=== PATIENT | female | born 1990 | race Caucasian/White ===

== ENCOUNTER 2020-08-22 13:23 | Inpatient (IN) | payer SELFPAY, OTHER ==
[2020-08-22] VITALS (16 sets, daily range): BP systolic 102–137; BP diastolic 58–90; PULSE 69–106; RESP 14–18; TEMP 36.3–36.8; O2SAT 96–100; BMI 39.4
[2020-08-22] MEDS: Lactated Ringers 1,000 ML 999 ML IV (13:16)
[2020-08-22] MEDS: Acetaminophen 500 MG Tablet 1000 MG PO ×2 (13:17→19:18)
[2020-08-22 13:41] LABS: Absolute Lymphocyte Count 1.68 X10^3/uL (0.83-4.51); Absolute Neutrophil Count 10.8 X10^3/uL (2.0-7.7); Basophil# 0.02 X10^3/uL; Basophil% 0.2 % (0-1); Eosinophil# 0.06 X10^3/uL; Eosinophils% 0.5 % (0-5); Hematocrit 39.8 % (37-47); Hemoglobin 13.3 g/dL (12.0-15.0); Lymphocyte # 1.68 X10^3/ul (4.0); Lymphocyte % 12.7 % (19-41); Mean Corp Hgb Conc 33.4 g/dL (32-36); Mean Corpuscular Hgb 29.4 pg (27.0-32.0); Mean Corpuscular Volume 87.9 fL (81-99); Mean Platelet Vol. 10.3 fl (6.2-12.0); Monocyte# 0.58 X10^3/uL; Monocyte% 4.4 % (0-10); NRBC Flagged by Analyzer 0 % (0-5); Neutrophil # 10.78 X10^3/uL (2.7-7.7); Neutrophil % 81.5 % (47-70); Platelet Count 217 K/mm3 (150-450); RBC Distribution Width CV 13.5 % (11.6-14.6); RBC Distribution Width SD 43.6 fl (35.1-43.9); Red Blood Count 4.53 M/mm3 (4.2-5.4); White Blood Count 13.2 K/mm3 (4.4-11.0)
[2020-08-22] MEDS: Sodium Citrate/Citric Acid 30 ML UDC PO (13:53)
[2020-08-22 13:56] LABS: Amphetamine Urine VISTA NEGATIVE (<1000 ng/mL); Barbiturate Urine VISTA NEGATIVE (< 200 ng/mL); Benzodiazepine Urine VISTA NEGATIVE (< 200 ng/mL); Cocaine Urine VISTA NEGATIVE (< 300 ng/mL); Ecstacy Urine VISTA NEGATIVE (< 500 ng/mL); Methadone Urine VISTA NEGATIVE (< 300 ng/mL); PCP Urine VISTA NEGATIVE (< 25 ng/mL); THC Urine VISTA NEGATIVE (< 50 ng/mL); Vista UDS pH Range 6
[2020-08-22] MEDS: Lactated Ringers 1,000 ML 150 ML IV (14:26)
--- NOTE | 2020-08-22 14:27 | HP.PCM_ITS ---
- Problem List (1) Limited care in third trimester Status: Acute (2) Previous delivery affecting Status: Acute (3) Abdominal pain affecting Status: Acute History Date of Admission: 08/22/20 Final KWABENA: 08/21/20 - Based on fundal height and time of first heart tones as captured by player development executive. Do days based on ultrasound range from 08/05/20 to the first week of August. Gestational age: 40 Weeks and 1 Days History of this : This is a 29 year-old, G 10 P8 at ?40w1d weeks gestational age presents with abdominal pain and history of . Patient has been receiving care by player development executive in the community since early January. She was unable to get heart tones in December but upon the January visit she did and therefore the ply splicer states her due date is approximately 08/21/2020. Patient has had a complicated by short interpregnancy intervals with 8 deliveries and 1 miscarriage within the last 9 years. Her first 3 deliveries were vaginal and then she had a for preeclampsia and then had 4 VBACs after it. She has had increasing abdominal discomfort the last week and this morning states that she has pain all over her abdomen that is significant and she called Viola Lr who had done an ultrasound and said that she was due on August 05 and that physician recommended she come in for evaluation and delivery here. After speaking with her ply splicer alyse the patient was evaluated last week by a physician in [place] and was thought to be 38 weeks last week on ultrasound and was recommended to have a repeat this week.. Allergies No Known Allergies Allergy (Verified 08/22/20 12:19) Home Medications: Home Medications Acidophilus 2 tab PO DAILY 08/22/20 Benadryl 1 tab PO QHS PRN 08/22/20 Calcium 500-Vit D3 600 Caplet 1 tab PO DAILY 08/22/20 Prenatabs FA 1 tab PO DAILY 08/22/20 Tylenol 1,000 mg PO 4X/DAY PRN 08/22/20 Smoking Status: Never smoker Substance Use Type: Sleep Aides NST - FHR Rate Baby A Baseline: 140 Variability:: Moderate, Marked Decelerations:: None NST Reactive:: Yes FHR Category:: Category I Uterine Activity:: Irritability History Past Pregnancies: Past Pregnancies 7 previous vaginal deliveries term 1 previous for preeclampsia, some home births and some of the hospital. Labs: Mom's Labs & Results 08/22/20 08/22/20 08/22/20 13:14 13:14 13:14 WBC 13.2 H RBC 4.53 Hgb 13.3 Hct 39.8 MCV 87.9 MCH 29.4 MCHC 33.4 RDW Std Deviation 43.6 RDW Coeff of Nanette 13.5 Plt Count 217 MPV 10.3 Immature Gran % (Auto) 0.700 Neut % (Auto) 81.5 H Lymph % (Auto) 12.7 L [place] % (Auto) 4.4 Eos % (Auto) 0.5 Baso % (Auto) 0.2 Absolute Neuts (auto) 10.8 H Absolute Lymphs (auto) 1.68 Nucleated RBC % 0 Urine Opiates Screen Urine Methadone Screen Ur Barbiturates Screen Ur Phencyclidine Scrn Ur Amphetamines Screen U Methamphetamin-MDMA U Benzodiazepines Scrn Urine Cocaine Screen U Cannabinoids Screen Ur Drug Screen Comment RPR Hep Bs Antigen Hepatitis C Antibody HIV 1&2 Antibody Rubella IgG Antibody Pending Blood Type Pending Antibody Screen Pending 08/22/20 08/22/20 08/22/20 13:14 13:14 13:15 WBC RBC Hgb Hct MCV MCH MCHC RDW Std Deviation RDW Coeff of Nanette Plt Count MPV Immature Gran % (Auto) Neut % (Auto) Lymph % (Auto) [place] % (Auto) Eos % (Auto) Baso % (Auto) Absolute Neuts (auto) Absolute Lymphs (auto) Nucleated RBC % Urine Opiates Screen NEGATIVE Urine Methadone Screen NEGATIVE Ur Barbiturates Screen NEGATIVE Ur Phencyclidine Scrn NEGATIVE Ur Amphetamines Screen NEGATIVE U Methamphetamin-MDMA NEGATIVE U Benzodiazepines Scrn NEGATIVE Urine Cocaine Screen NEGATIVE U Cannabinoids Screen NEGATIVE Ur Drug Screen Comment RPR Pending Hep Bs Antigen Pending Hepatitis C Antibody Pending HIV 1&2 Antibody Pending Rubella IgG Antibody Blood Type Antibody Screen Course Did the patient receive Yes care? Current Obstetrical History Gestational Diabetes No Incompetent Cervix No Infertility No IUGR No Macrosomia No Hypertension/Pre-eclampsia No Placenta Previa/Abruption No PTL/PROM No Uterine anomaly No Oligohydramnios No Polyhydramnios No Multiple gestation No Past Medical History Asthma No Diabetes No Hypertension No Heart disease No Mitral valve prolapse No Neurologic/Seizure disorder/ No Migraines Kidney disease No Liver disease No Varicosities Yes: bilateral legs Clotting disorders/Hx of DVT No Thyroid Dysfunction No Other medical diseases No Psychiatric disorders No Major trauma No Abnormal PAP smear No Sleep apnea No Mammogram in the last 2 years No Social History Marital Status: Alleged father [place] Hx Smoking No Smoking Status Never smoker Substance Use Type Sleep Aides Expected Infant Delivery Method: Spontaneous Vaginal Review of Systems Constitutional: Denies: Fever, Malaise Eyes: Denies: Blurred vision, Vision Change HEENT: Denies: Head Aches, Visual Changes Cardiovascular: Denies: Chest Pain, Palpitations Respiratory: Denies: Cough, Shortness of Breath, Wheezing Gastrointestinal: Reports: Abdominal Pain, Nausea. Denies: Diarrhea, Vomiting Genitourinary: Denies: Dysuria, Hematuria Musculoskeletal: Denies: Joint Pain, Muscle pain Skin: Denies: Lesions, Rash Neurological: Denies: Blurred vision, Focal weakness, Headaches Psychiatric: Denies: Anxiety, Depression Endocrine: Denies: Heat/ Cold Intolerance Hematologic/ Lymphatic: Denies: Easy Bruising, Easy Bleeding Physical Exam Vitals: Vital Signs Temp Pulse BP Pulse Ox 98.2 F 106 H 125/78 H 96 08/22/20 12:04 08/22/20 12:04 08/22/20 12:04 08/22/20 12:04 General: Alert, Cooperative, No apparent distress HEENT: Atraumatic, Normocephalic. Negative for: Thyromegaly, Lymphadenopathy Cardiovascular: Regular rate Lungs: Normal air movement Abdomen: Soft, Gravid, Appropriate for Gestational Age - Approximately 40 cm, - - Abdomen tender all over with no rebound or guarding severe abdominal wall laxity and rectus muscle diastases Neurological: Deep Tendon Reflexes 2+/4 and Symmetrical, Neuro grossly intact. Negative for: Clonus [employer]: Normal external genitalia. Negative for: Vulvar lesions Estimated gestational size: Appropriate for gestational size Presentation: Cephalic Cervix Dilation (cm): 2 Assessment/Plan All Active Problems Limited care in third trimester (Acute) Previous delivery affecting (Acute) Abdominal pain affecting (Acute) This is a 29 year-old, G 10 P8 at 40 weeks gestational age with abdominal pain and previous Unclear about exact dating but patient appears consistent with 40 weeks. Due to significant new onset of abdominal pain history of previous , recommend proceeding with repeat low transverse per patient request for versus vaginal delivery. Plan sterilization with bilateral salpingectomy per patient request also. heart tones reassuring and patient currently stable will wait for complete n.p.o. status
[2020-08-22 14:44] LABS: Bacteria 0 SEEN /hpf (None Seen); Mucous, Urine 0 SEEN /hpf (<or=2+); Red Blood Cells-Urine 0 SEEN /hpf (0-5); Squamous Epithelial Cells - UA 0 SEEN /hpf (5-10); White Blood Cells 0 SEEN /hpf (0-5)
[2020-08-22 14:46] LABS: Color, Urine Straw (Yellow); Glucose, Dipstick Normal (Normal); Ketone-Dipstick Negative (Negative); Leukocyte Esterase-Dipstick 25 /ul (Negative); Nitrite-Dipstick Negative (Negative); Occult Blood-Urine Negative /ul (Negative); Protein-Dipstick Negative (Negative); Specific Gravity, Urine 1.005 (1.002-1.030); Urine Bilirubin Dipstick Negative (Negative); Urine Clarity Clear (Clear); Urine Urobilinogen Normal (Normal)
[2020-08-22] MEDS: Cefazolin 2 GM in 0.9% Normal Saline 100 ML IV (15:00)
--- NOTE | 2020-08-22 15:16 | OP.PCM_ITS ---
Problem List (1) Limited care in third trimester Status: Acute (2) Previous delivery affecting Status: Acute (3) Abdominal pain affecting Status: Acute Delivery Classification: NICO Final KWABENA: 08/21/20 Gestational age: 40 Weeks and 1 Days lodge officer: Bry Gaytan Type of Anesthesia:: Spinal Special Medications: none Implants Used: none Date of Procedure: 08/22/20 Pre-Operative Diagnosis: previous , abdominal pain, desired sterilization Post-Operative Diagnosis: same Indications for : Repeat Elective , Desires elective sterilization Description of Procedure: Spinal anesthesia was placed without difficulty. Vergara catheter was placed. The patient was placed in the dorsal supine position with leftward tilt. Patient was prepped and draped in the normal sterile fashion. Pfannenstiel skin incision was made with the scalpel and carried through to the underlying layer of fascia with the scalpel. Fascia was nicked in the midline and the incision extended laterally. The rectus bellies were dissected off superiorly and inferiorly with out complication both sharply and bluntly. The peritoneum was entered digitally. The incision was stretched and a low transverse uterine incision was made with the scalpel. The 's head was delivered atraumatically followed by the anterior and posterior shoulders without complication the rest of the infant delivered. The cord was clamped and cut and the infant was handed off to awaiting nurse. The placenta was delivered spontaneously immediately following and was noted to be intact and have a three- vessel cord. The uterus was exteriorized cleared of all clots and debris, and the incision was closed in a single layer closure using #1 Monocryl. The ovaries and fallopian tubes were noted to be within normal limits. Patient had desired sterilization and was counseled preoperatively regarding irreversibility and permanency. Therefore bilateral fallopian tubes were elevated and transected across using a LigaSure device starting proximally to distally without complication the entire fallopian tubes were removed. The uterus was returned to the maternal abdomen and gutters were cleared of all clots and debris. The peritoneum was closed with 3-0 Monocryl in a running fashion. Gloves were changed prior to fascial closure. Fascia was closed with 0 PDS in a running fashion. Subcutaneous tissue was copiously irrigated and the skin was closed with 3-0 Monocryl in a subcuticular fashion. Mepilex dressing was applied without complication. Patient was taken to recovery in stable condition. Less than 30 minutes after delivery she developed a hemorrhage with approximately 800 cc EBL in addition to the previous 800 intraoperatively. Patient was given Hemabate, Methergine, Pitocin, and bimanual massage and Cytotec and tranexamic acid and the apnea resolved after the clot was removed from the lower uterine segment. Patient was initially hypotensive and then responded to fluids and interventions and stabilized. Amniotic Membrane Rupture Type: Artificial Amniotic Fluid Description: Clear Placenta Disposition: [facility] Fluids Replaced: crystalloid Cord Entanglement: None Cord Vessel Description: 3 Vessels Esitmated Blood Loss (ml): 800 Infant Gender: Male Delayed cord clamping: Yes Antibiotic Given: Ancef 2 grams IV x1 Pt instructed on risks of surgery: Bleeding, Anesthesia Risks, Infection, Permanency, Injury to surrounding structure(s) including bowel and bladder Complications: None - Admit VTE Documentation VTE Present on Admission: No VTE Mechan Device Prophylaxis: SCD's Multi Select Codes - Urinary/Genital Urinary/Genital CPT Codes: 27040 delivery+PP Care([facility])
[2020-08-22] MEDS: Methylergonovine 0.2 MG/ML Ampul IM (15:59)
[2020-08-22] MEDS: Oxytocin 30 units/NS 500 ml 30 UNITS/500 ML IV.SOLN 167 UNITS IV (16:10)
[2020-08-22 16:31] LABS: Chlamydia Trachomatis by PCR Negative (Negative); Neisserai gonorrhoeae by PCR Negative (Negative); Probe Check PASS; Sample Adequacy Control PASS; Specimen Processing Control PASS
--- NOTE | 2020-08-22 17:28 | NURSING ---
Hemorrhage noted upon first fundal exam in room out of OR at 1623. See Hemorrhage Checklist in paper chart for documentation. Receovery resumed at 1713 after patient stabilized.
[2020-08-22 17:40] LABS: Absolute Neutrophil Count 9.5 X10^3/uL (2.0-7.7); Basophil# 0.03 X10^3/uL; Basophil% 0.3 % (0-1); Eosinophil# 0.04 X10^3/uL; Eosinophils% 0.3 % (0-5); Hematocrit 35.6 % (37-47); Hemoglobin 11.6 g/dL (12.0-15.0); Lymphocyte % 13.5 % (19-41); Mean Corp Hgb Conc 32.6 g/dL (32-36); Mean Corpuscular Hgb 29.1 pg (27.0-32.0); Mean Corpuscular Volume 89.2 fL (81-99); Mean Platelet Vol. 10.7 fl (6.2-12.0); Monocyte# 0.58 X10^3/uL; Monocyte% 4.9 % (0-10); NRBC Flagged by Analyzer 0 % (0-5); Neutrophil % 80.2 % (47-70); Platelet Count 192 K/mm3 (150-450); RBC Distribution Width CV 13.5 % (11.6-14.6); RBC Distribution Width SD 44.2 fl (35.1-43.9); Red Blood Count 3.99 M/mm3 (4.2-5.4); White Blood Count 11.8 K/mm3 (4.4-11.0)
[2020-08-22] MEDS: HYDROmorphone 0.5 MG/0.5 ML SYRINGE IV ×2 (17:51→18:45)
[2020-08-22 17:56] LABS: Rubella IgG 78.1 IU/mL
--- NOTE | 2020-08-22 18:31 | NURSING ---
Report given to Polly Richardson RN. She will assume care at this time.
--- NOTE | 2020-08-22 18:45 | FALS_PTH ---
PATIENT: SERA MCCALL LOC: [facility] U#:[id number] AGE/SX: 29/F ROOM: WP006 RE08/22/[address]: Dr. Any Sesay MD : [id number] BED: 1 DIS: 08/24/2020 SPEC #: [id number] RECD: 08/22/20 19:20 STATUS: NIKKI REJeanne #: [id number] EFRAIN: 08/22/20 18:[address]: Any Sesay DEPT: SURGICAL PATHOLOGY RECD BY: Angelika Grijalva ENTERED: 08/23/20 09:39 SP TYPE: FALL TUBES OTHR DR: Dr. Viola Lr MD Tissues: Fallopian tube Procedures: Surgery Specimen Level II Surgery Specimen Level IV HEADER OPERATION: Tubal ligation PRE-OP DIAGNOSIS: Sterilization TISSUE SUBMITTED: Fallopian tubes, left tube has suture MICROSCOPIC DIAGNOSIS Bilateral fallopian tubes, salpingectomy: Right fallopian tube - no pathologic diagnosis. 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 ANISH:donato 08/24/20 COMMENT Case has been reviewed in consultation with Dr. Márquez who concurs with the above diagnosis. IDC:AM MICROSCOPIC DESCRIPTION Slides are reviewed. GROSS DESCRIPTION Received in fixative is one container labeled with the patient's name and designated bilateral fallopian tubes, left tube suture. The specimen consists of bilateral fallopian tubes including fimbrial ends. The right fallopian tube measures 7 cm in length and up to 1 cm in diameter. The left fallopian tube measures 5.5 cm in length and 0.5 cm in diameter. The left fallopian tube shows a cyst filled with hemorrhagic mucoid fluid close to the fimbrial end measuring 2 cm in greatest dimension. The cyst wall is smooth. [employer] sections are submitted in three cassettes as follows: 1 - right fallopian tube, 2 - left paratubal cyst, entirely submitted, 3 - left fallopian tube. / ANISH:donato 08/23/20 TC:1 CPT: 22323, 17255
[2020-08-22] MEDS: 0.9% Saline Lock 10 ML Syringe IV ×2 (18:46→19:34)
[2020-08-22] MEDS: Lactated Ringers 1,000 ML 100 ML IV (18:46)
[2020-08-22 19:22] LABS: Pathology Specimen OB SEE PATHOLOGY REPORT
[2020-08-22 22:17] LABS: HIV - WCH Non-Reactive (Nonreactive); Hepatitis B Surface Antigen Non-Reactive (Nonreactive); Hepatitis C Antibody Non-Reactive (Nonreactive)
[2020-08-22] MEDS: Ketorolac 30 MG/ML Syringe IV (22:42)
[2020-08-23] VITALS (14 sets, daily range): BP systolic 101–127; BP diastolic 54–69; PULSE 64–86; RESP 16–20; TEMP 36.3–36.6; O2SAT 97–100
[2020-08-23] MEDS: Acetaminophen 500 MG Tablet 1000 MG PO ×4 (01:17→19:46)
[2020-08-23] MEDS: Ketorolac 30 MG/ML Syringe IV ×3 (03:54→15:49)
[2020-08-23] MEDS: 0.9% Saline Lock 10 ML Syringe IV ×3 (03:54→21:54)
[2020-08-23 04:22] LABS: Hematocrit 30.1 % (37-47); Hemoglobin 9.9 g/dL (12.0-15.0); Mean Corp Hgb Conc 32.9 g/dL (32-36); Mean Corpuscular Hgb 29.5 pg (27.0-32.0); Mean Corpuscular Volume 89.6 fL (81-99); Mean Platelet Vol. 10.2 fl (6.2-12.0); Platelet Count 160 K/mm3 (150-450); RBC Distribution Width CV 13.6 % (11.6-14.6); RBC Distribution Width SD 44.8 fl (35.1-43.9); Red Blood Count 3.36 M/mm3 (4.2-5.4); White Blood Count 14.4 K/mm3 (4.4-11.0)
[2020-08-23] MEDS: Enoxaparin 40 MG/0.4 ML Syringe SC (05:47)
--- NOTE | 2020-08-23 08:00 | PN.OBGYN_ITS ---
Patient Problems: Active and Suspected Problems Limited care in third trimester (Acute) Previous delivery affecting (Acute) Abdominal pain affecting (Acute) Subjective: Patient doing well without complaints. Tolerating PO. Up to bedside and voiding without difficulty. well. Denies chest pain, shortness of breath, calf pain/swelling, fevers, chills, lightheadedness. - Physical Exam Vitals/I&O's: Vital Signs Temp Pulse Resp BP Pulse Ox 97.7 F L 76 18 109/64 99 08/23/20 03:40 08/23/20 07:02 08/23/20 07:02 08/23/20 03:40 08/23/20 07:02 Oxygen Delivery Method Room Air Weight: 195 lb Body Mass Index (BMI) 39.4 Intake and Output for Last 24 Hours 08/21/20 08/22/20 08/23/20 23:59 23:59 23:59 Intake Total 2305.00 / 2605.00 / 2000. Output Total 300 / 600 1750 / 1750 Balance / 251.67 / 251.67 General: Alert, Oriented x3, Cooperative Abdomen: Soft, Non-Distended, - - FF below U. Approprately tender Laboratory Results 08/22/20 13:14: WBC 13.2 H, RBC 4.53, Hgb 13.3, Hct 39.8, MCV 87.9, MCH 29.4, MCHC 33.4, RDW Std Deviation 43.6, RDW Coeff of Nanette 13.5, Plt Count 217, MPV 10.3, Immature Gran % (Auto) 0.700, Neut % (Auto) 81.5 H, Lymph % (Auto) 12.7 L, [place] % (Auto) 4.4, Eos % (Auto) 0.5, Baso % (Auto) 0.2, Absolute Neuts (auto) 10.8 H, Absolute Lymphs (auto) 1.68, Nucleated RBC % 0 08/22/20 13:14: Blood Type A NEGATIVE, Antibody Screen NEGATIVE 08/22/20 13:14: Rubella IgG Antibody 78.1 08/22/20 13:14: RPR Pending 08/22/20 13:14: Hep Bs Antigen Non-Reactive, Hepatitis C Antibody Non-Reactive, HIV 1&2 Antibody Non-Reactive 08/22/20 13:14: Crossmatch See Detail 08/22/20 13:15: Urine Opiates Screen NEGATIVE, Urine Methadone Screen NEGATIVE, Ur Barbiturates Screen NEGATIVE, Ur Phencyclidine Scrn NEGATIVE, Ur Amphetamines Screen NEGATIVE, U Methamphetamin-MDMA NEGATIVE, U Benzodiazepines Scrn NEGATIVE, Urine Cocaine Screen NEGATIVE, U Cannabinoids Screen NEGATIVE, Ur Drug Screen Comment 08/22/20 14:30: Chlam trachomat DNA PCR Negative, N.gonorrhoeae DNA (PCR) Negative 08/22/20 14:30: Urine Color Straw, Urine Clarity Clear, Urine pH 7.0, Ur Specific [place] 1.005, Urine Protein Negative, Urine Glucose (UA) Normal, Urine Ketones Negative, Urine Occult Blood Negative, Urine Nitrite Negative, Urine Bilirubin Negative, Urine Urobilinogen Normal, Ur Leukocyte Esterase 25 H, Urine RBC 0 SEEN, Urine WBC 0 SEEN, Ur Squamous Epith Cells 0 SEEN, Urine Bacteria 0 SEEN, Urine Mucus 0 SEEN 08/22/20 16:55: WBC 11.8 H, RBC 3.99 L, Hgb 11.6 L, Hct 35.6 L, MCV 89.2, MCH 29.1, MCHC 32.6, RDW Std Deviation 44.2 H, RDW Coeff of Nanette 13.5, Plt Count 192, MPV 10.7, Immature Gran % (Auto) 0.800, Neut % (Auto) 80.2 H, Lymph % (Auto) 13.5 L, Charlton % (Auto) 4.9, Eos % (Auto) 0.3, Baso % (Auto) 0.3, Absolute Neuts (auto) 9.5 H, Absolute Lymphs (auto) 1.60, Nucleated RBC % 0 08/23/20 04:05: WBC 14.4 H, RBC 3.36 L, Hgb 9.9 L, Hct 30.1 L, MCV 89.6, MCH 29.5, MCHC 32.9, RDW Std Deviation 44.8 H, RDW Coeff of Nanette 13.6, Plt Count 160, MPV 10.2 Current Medications Acetaminophen (Acetaminophen 500 Mg Tablet) 1,000 mg PO Q6 DENISHA Last Admin: 08/23/20 06:59 Dose: 1,000 mg Documented by: Bisacodyl (Bisacodyl 10 Mg Suppository) 10 mg RECTAL UD PRN PRN Reason: If no BM Diphenhydramine HCl (Diphenhydramine 25 Mg Capsule) 25 mg PO Q6H PRN PRN PRN Reason: ITCHING Stop: 08/23/20 14:46 Enoxaparin Sodium (Enoxaparin 40 Mg/0.4 Ml Syringe) 40 mg SC DAILY@0500 [facility] Last Admin: 08/23/20 05:47 Dose: 40 mg Documented by: Hydrocortisone (Hydrocortisone 2.5% Crm) 1 applic TOPICAL TID PRN PRN; Protocol PRN Reason: Discomfort Ketorolac Tromethamine (Ketorolac 30 Mg/Ml Syringe) 30 mg IV Q6H [facility] Stop: 08/23/20 16:01 Last Admin: 08/23/20 03:54 Dose: 30 mg Documented by: Methylergonovine Maleate (Methylergonovine 0.2 Mg/Ml Ampul) 0.2 mg IM X1 PRN PRN Reason: Uterine Atony Last Admin: 08/22/20 15:59 Dose: 0.2 mg Documented by: Naloxone HCl (Naloxone 0.4 Mg/Ml Syringe) 0.02 mg IV Q1M PRN PRN Reason: RR <10 and pt unresponsive Naproxen (Naproxen 250 Mg Tablet) 500 mg PO Q8H [facility] Ondansetron HCl (Ondansetron 4 Mg/2 Ml Vial) 4 mg IV Q4H PRN PRN PRN Reason: Nausea Oxycodone HCl (Oxycodone 5 Mg Tablet) 5 - 10 mg PO Q4H PRN PRN PRN Reason: Pain Score 4-10 Prochlorperazine Edisylate (Prochlorperazine 10 Mg/2 Ml Vial) 10 mg IV Q6H PRN PRN PRN Reason: NAUSEA Senna/Docusate Sodium (Senna/Docusate Sodium 1 Tablet) 0 tablet PO DAILY [facility] Simethicone (Simethicone 80 Mg Tablet) 80 mg PO PCHS PRN PRN Reason: Indigestion/stomach pain Sodium Chloride (0.9% Saline Lock 10 Ml Syringe) 5 - 15 ml IV UD PRN PRN Reason: SALINE FLUSH Last Admin: 08/23/20 03:54 Dose: 10 ml Documented by: Medical Necessity - Tobacco Use Smoking Status: Never smoker Assessment/Plan All Active Problems Limited care in third trimester (Acute) Previous delivery affecting (Acute) Abdominal pain affecting (Acute) s/p LTCS PPD # 1, bilateral salpingectomy 1. routine post care 2. breast feeding- support given 3. rh negative 4. rubella immune
[2020-08-23] MEDS: Senna/Docusate Sodium 1 Tablet PO ×2 (12:09→14:18)
[2020-08-23] MEDS: oxyCODONE 5 MG Tablet PO ×2 (19:45→20:35)
[2020-08-23] MEDS: Ondansetron 4 MG/2 ML Vial IV (21:55)
[2020-08-23] MEDS: Naproxen 250 MG Tablet 500 MG PO (22:06)
--- NOTE | 2020-08-23 23:51 | NURSING ---
Called Dr. Sesay and notified her pt being painful despite painmeds given. all pain meds and times given by RN told to MD. also notified pt has voided, not moving much out of bed, pt explains pain as pressure pain on the right side. Rn has educated pt to move and pt denies. RN can palpate gas bubbles in abdomen and feels distended. She has received gas x twice, zofran and senna. VS wnl, and bleeding has been appropriate. Received order for dilaudid 1 mg x1 iv.
[2020-08-24] MEDS: 0.9% Saline Lock 10 ML Syringe IV (00:06)
[2020-08-24] MEDS: HYDROmorphone 1 MG/ML Syringe IV (00:06)
[2020-08-24 01:35] VITALS: BP 128/66; PULSE 81; RESP 18; TEMP 36.2; O2SAT 95
[2020-08-24] MEDS: Acetaminophen 500 MG Tablet 1000 MG PO ×2 (01:39→07:54)
--- NOTE | 2020-08-24 03:40 | NURSING ---
pt painfful and will not allow RN to palpate fundus. bleeding WNL.
--- NOTE | 2020-08-24 03:43 | NURSING ---
Pt resting with eyes closed.
[2020-08-24] MEDS: oxyCODONE 5 MG Tablet PO ×2 (04:04→12:11)
[2020-08-24] MEDS: Enoxaparin 40 MG/0.4 ML Syringe SC (05:59)
[2020-08-24] MEDS: Naproxen 250 MG Tablet 500 MG PO (05:59)
--- NOTE | 2020-08-24 07:59 | PN.OBGYN_ITS ---
Patient Problems: Active and Suspected Problems Limited care in third trimester (Acute) Previous delivery affecting (Acute) Abdominal pain affecting (Acute) Subjective: Patient with abdominal distension but now passing gas. Tolerating PO. Ambulating and voiding without difficulty. well. Denies chest pain, shortness of breath, calf pain/swelling, fevers, chills, lightheadedness. - Physical Exam Vitals/I&O's: Vital Signs Temp Pulse Resp BP Pulse Ox 97.2 F L 81 18 128/66 H 95 08/24/20 01:35 08/24/20 01:35 08/24/20 01:35 08/24/20 01:35 08/24/20 01:35 Oxygen Delivery Method Room Air Weight: 195 lb Body Mass Index (BMI) 39.4 Intake and Output for Last 24 Hours 08/22/20 08/23/20 08/24/20 23:59 23:59 23:59 Intake Total 2305.00 / 2605.00 67 / Output Total 300 / 600 3250 / 3250 Balance / -1248.33 / -1248.33 General: Alert, Oriented x3, - - has answer most questions. Abdomen: Passing Flatus, Distended, Guarding, - - FF below U. Dressing with old drainage only. Current Medications Acetaminophen (Acetaminophen 500 Mg Tablet) 1,000 mg PO Q6 [facility] Last Admin: 08/24/20 07:54 Dose: 1,000 mg Documented by: Bisacodyl (Bisacodyl 10 Mg Suppository) 10 mg RECTAL UD PRN PRN Reason: If no BM Enoxaparin Sodium (Enoxaparin 40 Mg/0.4 Ml Syringe) 40 mg SC DAILY@0500 [facility] Last Admin: 08/24/20 05:59 Dose: 40 mg Documented by: Hydrocortisone (Hydrocortisone 2.5% Crm) 1 applic TOPICAL TID PRN PRN; Protocol PRN Reason: Discomfort Methylergonovine Maleate (Methylergonovine 0.2 Mg/Ml Ampul) 0.2 mg IM X1 PRN PRN Reason: Uterine Atony Last Admin: 08/22/20 15:59 Dose: 0.2 mg Documented by: Naloxone HCl (Naloxone 0.4 Mg/Ml Syringe) 0.02 mg IV Q1M PRN PRN Reason: RR <10 and pt unresponsive Naproxen (Naproxen 250 Mg Tablet) 500 mg PO Q8H [facility] Last Admin: 08/24/20 05:59 Dose: 500 mg Documented by: Ondansetron HCl (Ondansetron 4 Mg/2 Ml Vial) 4 mg IV Q4H PRN PRN PRN Reason: Nausea Last Admin: 08/23/20 21:55 Dose: 4 mg Documented by: Oxycodone HCl (Oxycodone 5 Mg Tablet) 5 - 10 mg PO Q4H PRN PRN PRN Reason: Pain Score 4-10 Last Admin: 08/24/20 04:04 Dose: 10 mg Documented by: Prochlorperazine Edisylate (Prochlorperazine 10 Mg/2 Ml Vial) 10 mg IV Q6H PRN PRN PRN Reason: NAUSEA Senna/Docusate Sodium (Senna/Docusate Sodium 1 Tablet) 0 tablet PO DAILY [facility] Last Admin: 08/23/20 14:18 Dose: 1 tablet Documented by: Simethicone (Simethicone 80 Mg Tablet) 80 mg PO PCHS PRN PRN Reason: Indigestion/stomach pain Last Admin: 08/23/20 21:35 Dose: 80 mg Documented by: Sodium Chloride (0.9% Saline Lock 10 Ml Syringe) 5 - 15 ml IV UD PRN PRN Reason: SALINE FLUSH Last Admin: 08/24/20 00:06 Dose: 10 ml Documented by: Medical Necessity - Tobacco Use Smoking Status: Never smoker Assessment/Plan All Active Problems Limited care in third trimester (Acute) Previous delivery affecting (Acute) Abdominal pain affecting (Acute) s/p LTCS PPD # 2 1. routine post care 2. breast feeding- support given 3. rh negative 4. rubella immune 5. Encouraged stool softener, heating pad, ambulation 6. SW consult planned 7. home today
[2020-08-24 08:00] VITALS: BP 127/81; PULSE 87; RESP 18; TEMP 36.8
--- NOTE | 2020-08-24 08:04 | DCINST_ITS ---
Additional Instructions: If you experience any of the following, contact your healthcare provider. * Bleeding that soaks a pad every hour for 2 hours * Fever 100.4 or higher * Unrelieved incision or abdominal pain * Swelling, redness, discharge or bleeding from your incision or episiotomy site * Your incision begins to separate * Problems urinating (including inability to urinate or burning while urinating). * Visual changes * Severe headache * Flu-like symptoms * Pain or redness in one of both of your breasts * Pain, warmth, tenderness or swelling in your legs, especially the calf area * Frequent nausea and vomiting * Symptoms of depression or anxiety If you experience any of the following, call 911 or go to the nearest Emergency Room. * Chest pain * Problems breathing * Seizure activity * Partial or complete paralysis of a body part, slurred speech, weakness or drooping of the face, or a sudden inability to walk or hold your balance Allergies/Adverse Reactions: Allergies No Known Allergies Allergy (Verified 08/22/20 12:19) Medications to take at Discharge Acidophilus 2 tab PO DAILY 08/22/20 Benadryl 1 tab PO QHS PRN 08/22/20 Calcium 500-Vit D3 600 Caplet 1 tab PO DAILY 08/22/20 Prenatabs FA 1 tab PO DAILY 08/22/20 Tylenol 1,000 mg PO 4X/DAY PRN 08/22/20 Naproxen 500 mg PO BID PRN #60 tab 08/24/20 Naproxen [Naprosyn] 500 mg PO BID PRN PRN #60 tab 08/24/20 Oxycodone HCl/Acetaminophen [Percocet 5/325] 1 - 2 tablet PO Q4H PRN PRN 3 Days #15 tablet 08/24/20 Sennosides/Docusate Sodium [Senna-Docusate Sodium Tablet] 1 ea PO DAILY PRN #30 tab 08/24/20 The following prescriptions were given: Naproxen [Naprosyn] 500 mg PO BID PRN PRN #60 tab PRN Reason: Pain Transmission Status: Pending to [facility] Naproxen 500 mg PO BID PRN #60 tab PRN Reason: Pain Transmission Status: Pending to [facility] Oxycodone HCl/Acetaminophen [Percocet 5/325] 1 - 2 tablet PO Q4H PRN PRN 3 Days #15 tablet PRN Reason: Pain Transmission Status: Sent to [facility] Sennosides/Docusate Sodium [Senna-Docusate Sodium Tablet] 1 ea PO DAILY PRN #30 tab PRN Reason: Constipation Transmission Status: Pending to [facility] Follow-Up: Call to make an appointment with your doctor for an incision check in 1-2 weeks. You will also need a 6 week post- follow up appointment. Test results from this visit will be discussed in further detail at your follow- up appointment, if applicable. Primary Care Physician: Viola Lr MD [Primary Care Provider] -
--- NOTE | 2020-08-24 08:04 | PCM.DCCSEC ---
Additional Instructions: If you experience any of the following, contact your healthcare provider. Bleeding that soaks a pad every hour for 2 hours Fever 100.4 or higher Unrelieved incision or abdominal pain Swelling, redness, discharge or bleeding from your incision or episiotomy site Your incision begins to separate Problems urinating (including inability to urinate or burning while urinating). Visual changes Severe headache Flu-like symptoms Pain or redness in one of both of your breasts Pain, warmth, tenderness or swelling in your legs, especially the calf area Frequent nausea and vomiting Symptoms of depression or anxiety If you experience any of the following, call 911 or go to the nearest Emergency Room. Chest pain Problems breathing Seizure activity Partial or complete paralysis of a body part, slurred speech, weakness or drooping of the face, or a sudden inability to walk or hold your balance Allergies/Adverse Reactions: Allergies No Known Allergies Allergy (Verified 08/22/20 12:19) Medications to take at Discharge Acidophilus 2 tab PO DAILY 08/22/20 Benadryl 1 tab PO QHS PRN 08/22/20 Calcium 500-Vit D3 600 Caplet 1 tab PO DAILY 08/22/20 Prenatabs FA 1 tab PO DAILY 08/22/20 Tylenol 1,000 mg PO 4X/DAY PRN 08/22/20 Naproxen 500 mg PO BID PRN #60 tab 08/24/20 Naproxen [Naprosyn] 500 mg PO BID PRN PRN #60 tab 08/24/20 Oxycodone HCl/Acetaminophen [Percocet 5/325] 1 - 2 tablet PO Q4H PRN PRN 3 Days #15 tablet 08/24/20 Sennosides/Docusate Sodium [Senna-Docusate Sodium Tablet] 1 ea PO DAILY PRN #30 tab 08/24/20 The following prescriptions were given: Naproxen [Naprosyn] 500 mg PO BID PRN PRN #60 tab PRN Reason: Pain Transmission Status: Pending to [facility] Naproxen 500 mg PO BID PRN #60 tab PRN Reason: Pain Transmission Status: Pending to [facility] Oxycodone HCl/Acetaminophen [Percocet 5/325] 1 - 2 tablet PO Q4H PRN PRN 3 Days #15 tablet PRN Reason: Pain Transmission Status: Sent to [facility] Sennosides/Docusate Sodium [Senna-Docusate Sodium Tablet] 1 ea PO DAILY PRN #30 tab PRN Reason: Constipation Transmission Status: Pending to [facility] Follow-Up: Call to make an appointment with your doctor for an incision check in 1-2 weeks. You will also need a 6 week post- follow up appointment. Test results from this visit will be discussed in further detail at your follow-up appointment, if applicable. Primary Care Physician: Viola Lr MD [Primary Care Provider] -
--- NOTE | 2020-08-24 09:05 | NURSING ---
Pt refused to have fundal check at this time.
--- NOTE | 2020-08-24 09:09 | NURSING ---
Varsha informed this RN pt refused fundal check. This was discussed on rounds with Dejah Arshad NP. Dejah performed fundal check and reported to this RN that uterus is midline and at the umbilicus.
[2020-08-24] MEDS: Senna/Docusate Sodium 1 Tablet PO (09:48)
[2020-08-24 12:28] VITALS: BP 138/81; PULSE 96; RESP 18; TEMP 36.6
--- NOTE | 2020-08-24 16:51 | CASEMGMT ---
Social Work Brief Assessment Labor and Delivery Unit Patient Address: [address] [place] [address] [address], [place] [id number] Phone number: [phone] (message line) Date of Referral/Notification: 08/24/2020 Time of Referral: [id number] Referred By: Dejah Arshad NP Date of Intervention: 08/24/2020 Time of Intervention: 1145 Reason for Referral: Discharge planning Informant: Medical record and mother of baby (MOB) Dominique Gay; father of baby (FOB) [place] also present. History: SUSANNA is a 29-year-old female to the FOB, both from the [facility]. SUSANNA is 7, para 8 now 9 after delivering baby flor [place] via section on 08/22/2020. MOB reports this was her second section with the first being the fourth child. The fourth child reportedly developed toxemia and was hospitalized at [facility] for a week and weighed only over 4 pounds at time of . FOB reports that patient/MOB did receive a couple of ultrasounds during this . The children are ranging from ages 10 to . MOB stays at home and cares for the children as well as works at home. The FOB works on the [employer]. MOB reports she will have help at home going from her mom who plans to stay for a couple of days as well as another helper for several weeks. MOB endorses history of the baby blues after previous births and typically talks to MOB mother about this. MOB reports her mom has assured her that many women experience this and it is very common. Educational level for this family is the eighth grade which is the norm for the [facility] community. Assessment: Met with MOB and FOB and MOB room. Observed MOB slow-moving and FOB helping the FOB to get situated in a chair, getting a foot rest for the MOB and holding a glass of water for MOB to drink from. MOB reported to this rfp writer that she feels ready to go home to focus on her recovery. MOB mother plans to be at the house for a couple of days to help care for the baby while while another helper plans to oversee the care of the other children and MOB house chores. FOB reports he has been trying to help the MOB as much as possible and will continue to do so at home. MOB and FOB report to have been needed baby supplies to take care of the baby at home. Offered written material on depression and the baby blues but MOB and FOB declined. MOB reports she can talk to her mother about any mood and emotions. FOB did tend to speak for MOB, but when this rfp writer looked directly at MOB FOB did remain silent and MOB was able to answer questions. MOB and FOB deny any concerns for home-going and reported to have adequate support. Their driver starting gate will be bringing a car seat for the baby to transport home. MOB reports awareness that she will need to return to the doctor's office in the next 2 weeks for wound check. The only assistance FOB asked about was for this rfp writer to help make a phone call to the [facility] liaison the family was interested in excepting the package burrows deal the hospital was offering. This rfp writer did assist with the phone call and provision of information. Plan: MOB and baby are being discharged today. Will discharge home with family support in place and reported need reported baby supplies in place as well. MOB reports believe she is ready to discharge home. No further needs requested or indicated. -LINDA Augustin, ENERGY SALES CONSULTANT *Information documented in this assessment generated with [employer]*
[2020-08-25 01:11] LABS: Rapid Plasmin Reagin (RPR) NONREACTIVE (NONREACTIVE)
== END 2020-08-24 13:20 | disposition home or self-care (01) | DRG 784 ==
LOC: WPOUT 13:23 → WP 13:23
PROVIDERS: Admitting Provider Obstetrics & Gynecology; PCP Obstetrics & Gynecology Gynecology; Referring Provider Obstetrics & Gynecology; Visit Provider Obstetrics & Gynecology
DX: O34.219 Maternal care for unspecified type scar from previous cesarean delivery (principal); O72.1 Other immediate postpartum hemorrhage; Z3A.40 40 weeks gestation of pregnancy; Z37.0 Single live birth; Z30.2 Encounter for sterilization
CPT/HCPCS: 59025; 59050; 80307; 81001; 85025; 85027; 86592; 86703; 86762; 86803; 86850; 86900; 86901; 86920; 87340; 87491; 87591; 88302; 88305; 99218; J7120; A4216; G0378; J2405